=== PATIENT | male | born 1950 | race African-American/Black ===

== ENCOUNTER 2025-02-27 21:59 | Emergency (ER) | payer MEDICARE, MEDICAID ==
[~2025-02-27] VITALS: Ht 185.4 cm; Wt 91.0 kg
[2025-02-27 22:20] VITALS: O2SAT 99
[2025-02-27 23:05] VITALS: TEMP 36.7
[2025-02-27] MEDS: LIDOCAINE 5% PATCH TOP ONE (23:11)
[2025-02-27] MEDS: ACETAMINOPHEN 325MG TABLET PO ONE (23:11)
[2025-02-27 23:28] LABS: BASOPHILS % 0.3 % (0.0-2.0); EOSINOPHILS % 3.6 % (0.0-5.0); HEMATOCRIT. 42.9 % (42.0-52.0); HEMOGLOBIN. 13.9 g/dL (14.0-18.0); LYMPHOCYTES % 31.6 % (20.0-50.0); MEAN PLATELET VOLUME 8.3 fl (7.4-10.4); MONOCYTES % 11.3 % (2.0-8.0); NEUTROPHILS % 53.2 % (40.0-76.0); PLATELET 241 x1000/uL (130-400); RED BLOOD CELL COUNT 5.07 mill/uL (4.7-6.1); RED CELL DISTRIBUTION WIDTH 15.1 % (11.6-14.6)
[2025-02-27 23:40] LABS: INR 1.0
[2025-02-27 23:45] LABS: CREATININE 1.0 mg/dL (0.6-1.3); UREA NITROGEN BLOOD 10 mg/dL (9-23)
[2025-02-27 23:46] LABS: TROPONIN I HIGH SENSITIVITY 12 ng/L (3.0-53)
[2025-02-27 23:54] LABS: ETHANOL BLOOD < 10 mg/dL (<10)
[2025-02-28 01:56] LABS: *AMPHETAMINES SCREEN URINE NEGATIVE (NEGATIVE); *BARBITURATES SCREEN URINE NEGATIVE (NEGATIVE); *BENZODIAZEPINES SCREEN URINE NEGATIVE (NEGATIVE); *COCAINE SCREEN URINE NEGATIVE (NEGATIVE); CANNABINOID URINE SCREEN PRESUMPTIVE POSITIVE (NEGATIVE); METHADONE URINE SCREEN NEGATIVE (NEGATIVE); OPIATES URINE SCREEN NEGATIVE (NEGATIVE); PHENCYCLIDINE URINE SCREEN NEGATIVE (NEGATIVE)
[2025-02-28 01:57] LABS: ECSTASY MDMA SCREEN URINE NEGATIVE (NEGATIVE)
[2025-02-28 03:35] LABS: TROPONIN I HIGH SENSITIVITY 14 ng/L (3.0-53)
[2025-02-28] MEDS ORDERED: ACET-2708 MT (04:02)
[2025-02-28 04:05] VITALS: BP 160/68; PULSE 67; RESP 18; O2SAT 97
== END 2025-02-28 04:12 | disposition home or self-care (01) ==
LOC: ER 21:59 → EDBEDREQ 02-28 00:29 → ER 02-28 04:12 → CMPBEDREQ 02-28 10:55
DX: R07.89 Other chest pain (principal); M25.512 Pain in left shoulder; I10 Essential (primary) hypertension; I25.2 Old myocardial infarction; M19.012 Primary osteoarthritis, left shoulder; Z88.0 Allergy status to penicillin; Z88.1 Allergy status to other antibiotic agents; Z88.2 Allergy status to sulfonamides; Z79.899 Other long term (current) drug therapy
CPT/HCPCS: 36415; 71045; 73030; 80048; 80305; 80320; 83880; 84484; 85025; 93005; 99285; A4565; G0480